=== PATIENT | male | born 1980 | race African-American/Black ===

== ENCOUNTER 2024-01-17 00:57 | Emergency (ER) | payer OTHER ==
[~2024-01-17] VITALS: Ht 182.9 cm; Wt 82.0 kg
[2024-01-17 00:59] VITALS: O2SAT 97
[2024-01-17 02:14] LABS: BASOPHILS % 0.8 % (0.0-2.0); EOSINOPHILS % 1.7 % (0.0-5.0); HEMATOCRIT. 43.4 % (42.0-52.0); HEMOGLOBIN. 14.2 g/dL (14.0-18.0); LYMPHOCYTES % 49.7 % (20.0-50.0); MEAN CORPUSCULAR HEMOGLOBIN 27.4 pg (28.0-32.0); MEAN CORPUSCULAR HGB CONC 32.6 g/dL (31.0-37.0); MEAN CORPUSCULAR VOLUME 83.9 fL (80.0-94.0); MEAN PLATELET VOLUME 8.1 fl (7.4-10.4); MONOCYTES % 6.1 % (2.0-8.0); NEUTROPHILS % 41.7 % (40.0-76.0); PLATELET 288 x1000/uL (130-400); RED BLOOD CELL COUNT 5.18 mill/uL (4.7-6.1); RED CELL DISTRIBUTION WIDTH 14.3 % (11.6-14.6); WHITE BLOOD COUNT 5.8 x1000/uL (4.5-11.0)
[2024-01-17 02:15] LABS: CHLORIDE 111 mEq/L (98-107); POTASSIUM 3.2 mEq/L (3.5-5.1); SODIUM 143 mEq/L (136-145)
[2024-01-17 02:16] LABS: CALCIUM 8.7 mg/dL (8.7-10.4); CARBON DIOXIDE 23 mEq/L (21-32)
[2024-01-17 02:21] LABS: CREATININE 0.8 mg/dL (0.6-1.3); ETHANOL BLOOD 274 mg/dL (<10); GLUCOSE 84 mg/dL (70-105); UREA NITROGEN BLOOD 9 mg/dL (9-23)
[2024-01-17] MEDS ORDERED: KEPP500 MT (05:50)
[2024-01-17 06:50] VITALS: BP 127/81; PULSE 54; RESP 15; TEMP 98.1
== END 2024-01-17 07:13 | disposition home or self-care (01) ==
LOC: ER 01:01 → EDBD 01:01 → ER 07:13
DX: F10.129 Alcohol abuse with intoxication, unspecified (principal); G40.89 Other seizures; Z88.0 Allergy status to penicillin; Y90.8 Blood alcohol level of 240 mg/100 ml or more
CPT/HCPCS: 36415; 80048; 80320; 82962; 85025; 99285; G0480